=== PATIENT | female | born 2000 | race Hispanic/Latino ===

== ENCOUNTER 2020-01-02 13:27 | Emergency (ER) | payer SELFPAY ==
[2020-01-02] MEDS ORDERED: FAMOTIDINE 20 MG/2 ML VIAL IV ONE (13:37)
[2020-01-02] MEDS ORDERED: METHYLPREDNISOLONE 125 MG INJ ONE (13:37)
[2020-01-02] MEDS ORDERED: DIPHENHYDRAMINE 50 MG/ML VIAL ONE (13:37)
[2020-01-02] MEDS ORDERED: NA CHLORIDE 0.9% 1,000 ML ONE (13:37)
--- NOTE | 2020-01-02 15:35 | ER ---
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 Transition of care: patient was not received from another setting of care. Onset: The symptoms/episode began/occurred suddenly. Anaphylaxis evaluation, no signs or symptoms of anaphylaxis were noted. Onset of symptoms was January 02, 2020. Risk Assessment: Do you want to hurt yourself or someone else? Patient reports no desire to harm self or others. Initial Sepsis Screen: Does the patient meet any 2 criteria? No. Patient's initial sepsis screen is negative. Does the patient have a suspected source of infection? No. Patient's initial sepsis screen is negative. Care prior to arrival: None. 13:25 Method Of Arrival: Ambulatory iw 13:25 Acuity: ALIX 2 iw Triage Assessment: 13:45 General: Appears in no apparent distress. comfortable, Behavior is cooperative, bp appropriate for age, anxious. Pain: Denies pain. EENT: No deficits noted. Neuro: No deficits noted. Cardiovascular: No deficits noted. Respiratory: No deficits noted. GI: No signs and/or symptoms were reported involving the gastrointestinal system. : No signs and/or symptoms were reported regarding the genitourinary system. Derm: Rash noted that is itchy. Musculoskeletal: No deficits noted. 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 - Coronavirus screen:: The patient has NOT traveled to [place] in the past 14 days. Proceed with normal triage process as indicated. - Social history:: Smoking status: Patient reports the use of cigarette tobacco products, denies chronic smoking, but will smoke occasionally. - Ebola Screening: : Patient negative for fever greater than or equal to 101.5 degrees Fahrenheit, and additional compatible Ebola Virus Disease symptoms Patient denies exposure to infectious person Patient denies travel to an Ebola-affected area in the 21 days before illness onset No symptoms or risks identified at this time. Screenin:45 Abuse screen: Denies threats or abuse. Denies injuries from another. Nutritional bp screening: No deficits noted. Tuberculosis screening: No symptoms or risk factors identified. Fall Risk None identified. Assessment: 13:45 General: SEE TRIAGE NOTE. bp Vital Signs: 13:44 BP 118 / 76; Pulse 93; Resp 18 S; Pulse Ox 97% on R/A; Weight 68.04 kg; Height 5 ft. 5 iw in. (165.10 cm); Pain 0/10; 13:45 BP 108 / 68; Pulse 93; Resp 18; Pulse Ox 97% on R/A; hb 14:45 BP 115 / 84; Pulse 83; Resp 15; Pulse Ox 99% on R/A; ah 13:44 Body Mass Index 24.96 (68.04 kg, 165.10 cm) iw ED Course: 13:29 Patient arrived in ED. as 13:35 Joyce Daigle FNP-C is PHCP. kb 13:35 Sae Cedeno MD is Attending Physician. kb 13:38 Inserted saline lock: 22 gauge in right antecubital area, using aseptic technique. kj1 13:39 Triage completed. iw 13:45 Patient has correct armband on for positive identification. Bed in low position. Call bp light in reach. Side rails up X2. 13:46 Arm band placed on. iw 14:14 Geovany Santana, RN is Primary Nurse. bp 15:08 No provider procedures requiring assistance completed. IV discontinued, intact, ah bleeding controlled, No redness/swelling at site. Pressure dressing applied. Administered Medications: 13:45 Drug: Benadryl 25 mg Route: IVP; Site: right antecubital; hb 13:46 Drug: NS 0.9% 1000 ml Route: IV; Rate: 1000 ml; Site: right antecubital; hb 13:46 Drug: Pepcid 20 mg Route: IVP; Site: right antecubital; hb 13:46 Drug: SOLU-Medrol 125 mg Route: IVP; Site: right antecubital; hb Outcome: 15:00 Discharge ordered by MD. kb 15:08 Discharged to home ambulatory. 15:08 Condition: stable 15:08 Discharge instructions given to patient, Instructed on discharge instructions, Demonstrated understanding of instructions, follow-up care, medications, Prescriptions given X 2. 15:09 Patient left the ED. Signatures: Joyce Daigle, RYAN-Delta DAVIS-Josy Bridges Irene, RN RN Teena Vo RN RN Geovany Santana RN RN Mary Daigle kj1 Mayela Baker RN RN Corrections: (The following items were deleted from the chart) 13:47 13:44 68.04 kg; Height 5 ft. 5 in.; BMI: 24.9; Pain 0/10; iw iw
--- NOTE | 2020-01-02 15:37 | EDPHYS ---
Physician Documentation [facility] Name: Sera Metzger Age: 19 yrs Sex: Female : 2000 Arrival Date: 01/02/2020 Time: 13:29 Bed 19 Private MD: ED Physician Sae Cedeno HPI: 01/02 13:35 This 19 yrs old Female presents to ER via Unassigned with complaints of kb Allergic Reaction. 16:09 The patient presents with itching, rash, that is diffuse. Onset: The symptoms/episode kb began/occurred just prior to arrival. Associated signs and symptoms: Pertinent positives: hives, rash. Possible causes: pink monster. At home the patient or guardian has treated the symptoms with Benadryl. Severity of symptoms: At their worst the symptoms were moderate in the emergency department the symptoms are unchanged. The patient has not experienced similar symptoms in the past. The patient has not recently seen a physician. 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 - Coronavirus screen:: The patient has NOT traveled to [place] in the past 14 days. Proceed with normal triage process as indicated. - Social history:: Smoking status: Patient reports the use of cigarette tobacco products, denies chronic smoking, but will smoke occasionally. - Ebola Screening: : Patient negative for fever greater than or equal to 101.5 degrees Fahrenheit, and additional compatible Ebola Virus Disease symptoms Patient denies exposure to infectious person Patient denies travel to an Ebola-affected area in the 21 days before illness onset No symptoms or risks identified at this time. ROS: 16:08 Constitutional: Negative for fever, chills, and weight loss, Neck: Negative for injury, kb pain, and swelling, Cardiovascular: Negative for chest pain, palpitations, and edema, Respiratory: Negative for shortness of breath, cough, wheezing, and pleuritic chest pain, Abdomen/GI: Negative for abdominal pain, nausea, vomiting, diarrhea, and constipation, Back: Negative for injury and pain, MS/Extremity: Negative for injury and deformity, Neuro: Negative for headache, weakness, numbness, tingling, and seizure. 16:08 Skin: Positive for rash, diffusely. Exam: 16:08 Constitutional: This is a well developed, well nourished patient who is awake, alert, kb and in no acute distress. Head/Face: Normocephalic, atraumatic. Chest/axilla: Normal chest wall appearance and motion. Nontender with no deformity. No lesions are appreciated. Cardiovascular: Regular rate and rhythm with a normal S1 and S2. No gallops, murmurs, or rubs. Normal PMI, no JVD. No pulse deficits. Respiratory: Lungs have equal breath sounds bilaterally, clear to auscultation and percussion. No rales, rhonchi or wheezes noted. No increased work of breathing, no retractions or nasal flaring. Abdomen/GI: Soft, non-tender, with normal bowel sounds. No distension or tympany. No guarding or rebound. No evidence of tenderness throughout. MS/ Extremity: Pulses equal, no cyanosis. Neurovascular intact. Full, normal range of motion. Neuro: Awake and alert, GCS 15, oriented to person, place, time, and situation. Cranial nerves II-XII grossly intact. Motor strength 5/5 in all extremities. Sensory grossly intact. Cerebellar exam normal. Normal gait. 16:08 Skin: consistent with urticaria, and is diffusely located. Vital Signs: 13:44 BP 118 / 76; Pulse 93; Resp 18 S; Pulse Ox 97% on R/A; Weight 68.04 kg; Height 5 ft. 5 iw in. (165.10 cm); Pain 0/10; 13:45 BP 108 / 68; Pulse 93; Resp 18; Pulse Ox 97% on R/A; hb 14:45 BP 115 / 84; Pulse 83; Resp 15; Pulse Ox 99% on R/A; ah 13:44 Body Mass Index 24.96 (68.04 kg, 165.10 cm) iw MDM: 13:36 Patient medically screened. kb 14:58 Data reviewed: vital signs, nurses notes. Data interpreted: Pulse oximetry: on room air kb is 97 %. Interpretation: normal. Counseling: I had a detailed discussion with the patient and/or guardian regarding: the historical points, exam findings, and any diagnostic results supporting the discharge/admit diagnosis, the need for outpatient follow up, a family practitioner, to return to the emergency department if symptoms worsen or persist or if there are any questions or concerns that arise at home. 01/02 13:36 Order name: IV Start; Complete Time: 13:46 kb Administered Medications: 13:45 Drug: Benadryl 25 mg Route: IVP; Site: right antecubital; hb 13:46 Drug: NS 0.9% 1000 ml Route: IV; Rate: 1000 ml; Site: right antecubital; hb 13:46 Drug: Pepcid 20 mg Route: IVP; Site: right antecubital; hb 13:46 Drug: SOLU-Medrol 125 mg Route: IVP; Site: right antecubital; hb Disposition: 15:20 Co-signature as Attending Physician, Sae Cedeno MD I agree with the assessment and kdr plan of care. Disposition: 01/02/20 15:00 Discharged to Home. Impression: Urticaria. - Condition is Stable. - Discharge Instructions: Hives, [id number], Allergies, [id number]. - Prescriptions for Pepcid 20 mg Oral Tablet - take 1 tablet by ORAL route every 12 hours for 5 days; 10 tablet. Prednisone 20 mg Oral Tablet - take 1 tablet by ORAL route once daily for 5 days; 5 tablet. - Medication Reconciliation Form, Thank You Letter, Antibiotic Education, Prescription Opioid Use form. - Follow up: Emergency Department; When: As needed; Reason: Worsening of condition. Follow up: Private Physician; When: 2 - 3 days; Reason: Recheck today's complaints, Continuance of care, Re-evaluation by your physician. Signatures: Joyce Daigle, STAFF CERTIFIED NURSE MIDWIFE-C STAFF CERTIFIED NURSE MIDWIFE-Ckb Sae Cedeno MD MD [facility] Ritika Soliz RN RN Teena Vo, RAVINDRA RN Mayela Celis RN RN Corrections: (The following items were deleted from the chart) 15:09 15:00 01/02/2020 15:00 Discharged to Home. Impression: Urticaria. Condition is Stable. ah Forms are Medication Reconciliation Form, Thank You Letter, Antibiotic Education, Prescription Opioid Use. Follow up: Emergency Department; When: As needed; Reason: Worsening of condition. Follow up: Private Physician; When: 2 - 3 days; Reason: Recheck today's complaints, Continuance of care, Re-evaluation by your physician. kb
[2020-01-03 09:32] VITALS: BP 115/84; O2SAT 99
== END 2020-01-02 15:09 | disposition home or self-care (01) ==
LOC: ER 13:27
DX: L50.9 Urticaria, unspecified (principal); F41.9 Anxiety disorder, unspecified; F17.210 Nicotine dependence, cigarettes, uncomplicated
CPT/HCPCS: 96374; 96375; 99283; J1200; J2930; J7030

== ENCOUNTER 2020-12-17 02:15 | Emergency (ER) | payer SELFPAY ==
[2020-12-17] MEDS ORDERED: KETOROLAC 30 MG/ML INJ ONE (02:53)
[2020-12-17 03:04] LABS: Urine Blood 2+ (NEG); Urine Glucose NEGATIVE (NEG); Urine Protein 3+ (NEG); Urine Specific Gravity 1.025 (1.005-1.030)
[2020-12-17 03:07] LABS: Absolute Lymphocytes (CBC) 2.5 K/uL (0.7-4.9); Basophils % 0.4 % (0-1.3); MPV 8.3 fL (7.6-11.3)
[2020-12-17 03:19] LABS: ALT/SGPT 15 U/L (12-78); AST/SGOT 12 U/L (15-37); Albumin 3.9 g/dL (3.4-5.0); Alkaline Phosphatase 82 U/L (45-117); BUN Blood Urea Nitrogen 13 mg/dL (7-18); Bicarbonate 26 mmol/L (21-32); Bilirubin Direct 0.1 mg/dL (0-0.2); Bilirubin Total 0.5 mg/dL (0.2-1.0); Glucose Level 88 mg/dL (74-106); Lipase 162 U/L (73-393); Potassium 4.1 mmol/L (3.5-5.1); Protein, Total 7.9 g/dL (6.4-8.2); Sodium Level 139 mmol/L (136-145)
--- NOTE | 2020-12-17 03:31 | ER ---
Nurse's Notes [facility] Name: Sera Metzger Age: 20 yrs Sex: Female : 2000 Arrival Date: 12/17/2020 Time: 02:19 Bed 14 Private MD: Diagnosis: Kidney stone - recently passed;Urinary tract infection, site not specified Presentation: 12/17 02:26 Chief complaint: Patient states: reports right sided flank pain that radiates into RLQ em at midnight, reports burning and frequency, denies N/V. Coronavirus screen: Client denies travel out of the [place] in the last 14 days. Ebola Screen: Patient negative for fever greater than or equal to 101.5 degrees Fahrenheit, and additional compatible Ebola Virus Disease symptoms Patient denies exposure to infectious person. Patient denies travel to an Ebola-affected area in the 21 days before illness onset. No symptoms or risks identified at this time. Initial Sepsis Screen: Does the patient meet any 2 criteria? HR > 90 bpm. No. Patient's initial sepsis screen is negative. Does the patient have a suspected source of infection? No. Patient's initial sepsis screen is negative. Risk Assessment: Do you want to hurt yourself or someone else? Patient reports no desire to harm self or others. Onset of symptoms was December 17, 2020. 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 - Social history:: Smoking status: Patient reports the use of cigarette tobacco products, denies chronic smoking, but will smoke occasionally. - Family history:: not pertinent. - Hospitalizations: : No recent hospitalization is reported. Screenin:32 Abuse screen: Denies threats or abuse. Nutritional screening: No deficits noted. em Tuberculosis screening: No symptoms or risk factors identified. Fall Risk None identified. Assessment: 02:33 General: Appears in no apparent distress. comfortable, Behavior is calm, cooperative, em appropriate for age, Denies fever. Pain: Complains of pain in anterior aspect of right lateral abdomen Pain radiates to right lower quadrant Pain currently is 8 out of 10 on a pain scale. Neuro: Level of Consciousness is awake, alert, obeys commands, Oriented to person, place, time, situation, Appropriate for age. Cardiovascular: Capillary refill < 3 seconds Patient's skin is warm and dry. Respiratory: Airway is patent Respiratory effort is even, unlabored, Respiratory pattern is regular, symmetrical. GI: Abdomen is flat, Abd is soft and non tender X 4 quads. GI: Patient currently denies nausea, vomiting. : Reports burning with urination, urinary frequency. Derm: Skin is intact, is healthy with good turgor, Skin is. Musculoskeletal: Capillary refill < 3 seconds, Range of motion: intact in all extremities. 03:36 Reassessment: Patient appears in no apparent distress at this time. Patient is alert, rr5 oriented x 3, equal unlabored respirations, skin warm/dry/pink. discharge instruction given and explained without complaints made Patient states feeling better. Patient states symptoms have improved. Vital Signs: 02:26 BP 108 / 62; Pulse 91; Resp 18; Temp 98.7(O); Pulse Ox 100% on R/A; Weight 68.04 kg; em Height 5 ft. 7 in. (170.18 cm); Pain 8/10; 03:20 BP 94 / 61; Pulse 81; Resp 18; Pulse Ox 100% on R/A; em 02:26 Body Mass Index 23.49 (68.04 kg, 170.18 cm) em ED Course: 02:19 Patient arrived in ED. bp1 02:20 Eloy Hall MD is Attending Physician. rn 02:26 Cali Vang, RAVINDRA is Primary Nurse. em 02:30 Triage completed. em 02:31 Arm band placed on. em 02:32 Patient has correct armband on for positive identification. Bed in low position. Call em light in reach. Side rails up X2. Pulse ox on. NIBP on. 02:45 Initial lab(s) drawn, by me, sent to lab. Inserted saline lock: 20 gauge in right em antecubital area, using aseptic technique. Blood collected. 03:05 CT Stone Protocol In Process Unspecified. EDMS 03:37 No provider procedures requiring assistance completed. IV discontinued, intact, rr5 bleeding controlled, No redness/swelling at site. Pressure dressing applied. Administered Medications: 02:50 Drug: TORadol 30 mg Route: IVP; Site: right antecubital; rr5 03:38 Follow up: Response: No adverse reaction; Pain is decreased rr5 Outcome: 03:30 Discharge ordered by . rn 03:37 Discharged to home ambulatory. rr5 03:37 Condition: stable 03:37 Discharge instructions given to patient, Instructed on discharge instructions, follow up and referral plans. medication usage, Demonstrated understanding of instructions, follow-up care, medications, Prescriptions given X 1. 03:39 Patient left the ED. rr5 Signatures: Dispatcher [employer] EDCali Kaur, RN Eloy Moreno MD MD rn Roque, Raymond, RAVINDRA RN rr5 Anni Ardon
--- NOTE | 2020-12-17 03:31 | EDPHYS ---
Physician Documentation [facility] Name: Sera Metzger Age: 20 yrs Sex: Female : 2000 Arrival Date: 12/17/2020 Time: 02:19 Bed 14 Private MD: ED Physician Eloy Hall HPI: 12/17 02:33 This 20 yrs old Female presents to ER via Ambulatory with complaints of Flank rn Pain, Possible Kidney Stone. 02:33 The patient complains of pain in the right mid back. The pain radiates to the abdomen. rn Onset: The symptoms/episode began/occurred 2 hour(s) ago. Modifying factors: The symptoms are alleviated by nothing. the symptoms are aggravated by nothing. Associated signs and symptoms: Pertinent positives: dysuria, urinary frequency, Pertinent negatives: diarrhea, fever, vomiting. Severity of pain: At its worst the pain was moderate in the emergency department the pain is unchanged. The patient has not experienced similar symptoms in the past. The patient has not recently seen a physician. Reports 2 hours of right flank pain, radiates to right groin, no fever/vomiting. Reports father with kidney stones. No diarrhea. Reports increased urinary frequency and dysuria.. 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 - Social history:: Smoking status: Patient reports the use of cigarette tobacco products, denies chronic smoking, but will smoke occasionally. - Family history:: not pertinent. - Hospitalizations: : No recent hospitalization is reported. ROS: 02:33 Constitutional: Negative for fever, chills, and weight loss, Eyes: Negative for injury, rn pain, redness, and discharge, Neck: Negative for injury, pain, and swelling, Cardiovascular: Negative for chest pain, palpitations, and edema, Respiratory: Negative for shortness of breath, cough, wheezing, and pleuritic chest pain, Abdomen/GI: Negative for nausea, vomiting, diarrhea, and constipation, Back: Negative for injury and pain, : + dysuria and increased frequency MS/Extremity: Negative for injury and deformity, Skin: Negative for injury, rash, and discoloration, Neuro: Negative for headache, weakness, numbness, tingling, and seizure. Exam: 02:33 Constitutional: This is a well developed, well nourished patient who is awake, alert, rn and in no acute distress. Head/Face: Normocephalic, atraumatic. Cardiovascular: Regular rate and rhythm. No pulse deficits. Respiratory: No increased work of breathing, no retractions or nasal flaring. Abdomen/GI: Soft, non-tender, neg walter Skin: Warm, dry MS/ Extremity: Pulses equal, no cyanosis. Neuro: Awake and alert, GCS 15 Vital Signs: 02:26 BP 108 / 62; Pulse 91; Resp 18; Temp 98.7(O); Pulse Ox 100% on R/A; Weight 68.04 kg; em Height 5 ft. 7 in. (170.18 cm); Pain 8/10; 03:20 BP 94 / 61; Pulse 81; Resp 18; Pulse Ox 100% on R/A; em 02:26 Body Mass Index 23.49 (68.04 kg, 170.18 cm) em MDM: 02:20 Patient medically screened. rn 03:29 Differential diagnosis: nephrolithiasis, pyelonephritis, UTI, appendicitis. Data rn reviewed: vital signs, nurses notes, lab test result(s), radiologic studies, CT scan, and as a result, I will discharge patient. Counseling: I had a detailed discussion with the patient and/or guardian regarding: the historical points, exam findings, and any diagnostic results supporting the discharge/admit diagnosis, lab results, radiology results, the need for outpatient follow up, to return to the emergency department if symptoms worsen or persist or if there are any questions or concerns that arise at home. Response to treatment: the patient's symptoms have markedly improved after treatment, and as a result, I will discharge patient. Special discussion: I discussed with the patient/guardian in detail that at this point there is no indication for admission to the hospital. It is understood, however, that if the symptoms persist or worsen the patient needs to return immediately for re-evaluation. ED course: Pt markedly improved, ct shows signs of recently passed right kidney stone, + UTI, will dc home with abx and return precautions. . 12/17 02:33 Order name: Basic Metabolic Panel; Complete Time: 03:31 rn 12/17 02:33 Order name: CBC with Diff; Complete Time: 03:15 rn 12/17 02:33 Order name: Hepatic Function; Complete Time: 03:31 rn 12/17 02:33 Order name: Lipase; Complete Time: 03:31 rn 12/17 02:47 Order name: Urine Dipstick--Ancillary (enter results) tt3 12/17 02:47 Order name: Urine --Ancillary (enter results) tt3 12/17 02:33 Order name: IV Saline Lock; Complete Time: 02:45 rn 12/17 02:33 Order name: Labs collected and sent; Complete Time: 02:45 rn 12/17 02:33 Order name: CT Stone Protocol rn 12/17 02:33 Order name: Urine Test (obtain specimen); Complete Time: 02:45 rn 12/17 02:33 Order name: Urine Dipstick-Ancillary (obtain specimen); Complete Time: 02:45 rn 12/17 02:47 Order name: Urine Dipstick-Ancillary; Complete Time: 03:15 EDMS 12/17 02:47 Order name: Urine --Ancillary; Complete Time: 03:15 EDMS Administered Medications: 02:50 Drug: TORadol 30 mg Route: IVP; Site: right antecubital; rr5 03:38 Follow up: Response: No adverse reaction; Pain is decreased rr5 Disposition: 12/17/20 03:30 Discharged to Home. Impression: Kidney stone - recently passed, Urinary tract infection, site not specified. - Condition is Stable. - Discharge Instructions: Dysuria, Kidney Stones, Urinary Tract Infection, Adult, Dietary Guidelines to Help Prevent Kidney Stones. - Prescriptions for Cipro 500 mg Oral Tablet - take 1 tablet by ORAL route every 12 hours for 7 days; 14 tablet. - Medication Reconciliation Form, Thank You Letter, Antibiotic Education, Prescription Opioid Use form. - Follow up: Private Physician; When: As needed; Reason: Recheck today's complaints, Re-evaluation by your physician. - Problem is new. - Symptoms have improved. Signatures: Dispatcher [employer] Cali Myles RN RN em Nieto, Roman, MD MD rn Roque, Raymond, RN RN rr5 Corrections: (The following items were deleted from the chart) 02:35 02:33 Constitutional: Negative for fever, chills, and weight loss, Eyes: Negative for rn injury, pain, redness, and discharge, Neck: Negative for injury, pain, and swelling, Cardiovascular: Negative for chest pain, palpitations, and edema, Respiratory: Negative for shortness of breath, cough, wheezing, and pleuritic chest pain, Abdomen/GI: Negative for nausea, vomiting, diarrhea, and constipation, Back: Negative for injury and pain, : Negative for injury, bleeding, discharge, and swelling, MS/Extremity: Negative for injury and deformity, Skin: Negative for injury, rash, and discoloration, Neuro: Negative for headache, weakness, numbness, tingling, and seizure, rn 03:39 03:30 12/17/2020 03:30 Discharged to Home. Impression: Kidney stone - recently passed; rr5 Urinary tract infection, site not specified. Condition is Stable. Forms are Medication Reconciliation Form, Thank You Letter, Antibiotic Education, Prescription Opioid Use. Follow up: Private Physician; When: As needed; Reason: Recheck today's complaints, Re-evaluation by your physician. Problem is new. Symptoms have improved. rn
[2020-12-17 03:44] VITALS: TEMP 98.7; O2SAT 100
[2020-12-17 03:45] VITALS: BP 94/61
--- NOTE | 2020-12-17 11:40 | RAD REPORT ---
EXAM DESCRIPTION: CT - Stone Protocol - 12/17/2020 6:20 am CLINICAL HISTORY: The patient is 20 years old and is Female; right flank pain, dysuria TECHNIQUE: Axial computed tomography images of the abdomen and pelvis without intravenous contrast. Sagittal and coronal reformatted images were created and reviewed. This CT exam was performed usi ng one or more of the following dose reduction techniques: automated exposure control, adjustment o f the mA and/or kV according to patient size, and/or use of iterative reconstruction technique. COMPARISON: No relevant prior studies available. FINDINGS: LUNG BASES: Unremarkable. No mass. No consolidation. ABDOMEN: LIVER: Homogeneous without focal mass. GALLBLADDER AND BILE DUCTS: No calcified stones. No ductal dilation. PANCREAS: Unremarkable. No ductal dilation. SPLEEN: Unremarkable. ADRENALS: Unremarkable. No mass. KIDNEYS AND URETERS: Mild right hydronephrosis and proximal hydroureter is present. Obstructing calculus is not seen. The left kidney is normal. STOMACH AND BOWEL: The stomach is well distended with food contents and fluid. The small bowel i s normal in caliber. A moderate amount stool is present throughout colon. There is no bowel obstructi on. PELVIS: APPENDIX: The appendix is normal in caliber without surrounding inflammation. BLADDER: Diffuse bladder wall thickening is present. Mild surrounding inflammation is noted. N o stones. REPRODUCTIVE: Probable 1.8 cm left ovarian cyst is present. No follow-up imaging is recommended. The uterus and right ovary are normal. ABDOMEN and PELVIS: INTRAPERITONEAL SPACE: Free fluid is present in the pelvis which is likely physiologic. No clarence e air. BONES/JOINTS: No acute fracture. SOFT TISSUES: The soft tissues are normal. VASCULATURE: A few calcified phleboliths are present within the pelvis. No abdominal aortic an eurysm. LYMPH NODES: Unremarkable. No enlarged lymph nodes. IMPRESSION: 1. Mild right hydronephrosis and proximal hydroureter. An obstructing calculus is not seen. Findings may be secondary to a recently passed stone. 2. Diffuse bladder wall thickening with surrounding inflammation suggestive of cystitis. Electronically signed by: Tri Eng MD 12/17/2020 3:15 AM RECORDS SUPERVISOR Due to temporary technical issues with the PACS/Fluency reporting system, reports are being signed by the in house radiologist without review as a courtesy to ensure prompt reporting. The interpreting r adiologist is fully responsible for the content of the report.
== END 2020-12-17 03:39 | disposition home or self-care (01) ==
LOC: ER 02:15
DX: N13.2 Hydronephrosis with renal and ureteral calculous obstruction (principal); N39.0 Urinary tract infection, site not specified; F17.210 Nicotine dependence, cigarettes, uncomplicated; F41.9 Anxiety disorder, unspecified
CPT/HCPCS: 36415; 74176; 76377; 80048; 80076; 81003; 81025; 83690; 85025; 96374; 99284

== ENCOUNTER 2021-01-26 10:38 | Emergency (ER) | payer SELFPAY ==
--- NOTE | 2021-01-26 11:09 | EDPHYS ---
Physician Documentation [facility] Name: Sera Metzger Age: 20 yrs Sex: Female : 2000 Arrival Date: 01/26/2021 Time: 10:42 Bed 20 Private MD: ED Physician Eloy Hall HPI: 01/26 11:01 This 20 yrs old Female presents to ER via Ambulatory with complaints of Lip pm1 sore. 11:01 The patient presents with cold sores. The problem is located in the lower lip. Onset: pm1 The symptoms/episode began/occurred 4 day(s) ago. Duration: The symptoms are continuous. Modifying factors: The symptoms are alleviated by over the counter medications, Abbreva. Associated signs and symptoms: Pertinent negatives: fever, inability to eat. Severity of symptoms: in the emergency department the symptoms have improved, markedly, with abbreva. The patient has not experienced similar symptoms in the past. The patient has not recently seen a physician. 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 - Social history:: Smoking status: Patient reports the use of cigarette tobacco products, denies chronic smoking, but will smoke occasionally. ROS: 11:01 Constitutional: Negative for fever, chills, and weight loss. pm1 11:01 Cardiovascular: Negative for chest pain, palpitations, and edema, Respiratory: Negative for shortness of breath, cough, wheezing, and pleuritic chest pain, MS/Extremity: Negative for injury and deformity, Skin: Negative for injury, rash, and discoloration. 11:01 ENT: Positive for lower lip sores, Negative for ear pain, sore throat. Exam: 11:01 Constitutional: This is a well developed, well nourished patient who is awake, alert, pm1 and in no acute distress. Head/Face: Normocephalic, atraumatic. 11:01 Skin: Warm, dry with normal turgor. Normal color with no rashes, no lesions, and no evidence of cellulitis. 11:01 ENT: Mouth: Lips: small vesicular lesions with crusting to lower lip, Posterior pharynx: no acute changes, Voice: is normal. 11:01 Cardiovascular: Exam negative for acute changes, Rate: normal, Rhythm: regular, Pulses: no pulse deficits are appreciated. 11:01 Respiratory: Exam negative for acute changes, respiratory distress, shortness of breath. 11:01 Neuro: Exam negative for acute changes, Orientation: is normal, Mentation: is normal, Motor: moves all fours. Vital Signs: 10:51 BP 102 / 76; Pulse 90; Resp 16; Temp 98.7; Pulse Ox 100% ; Weight 62.14 kg; Height 5 ll1 ft. 7 in. (170.18 cm); Pain 8/10; 11:09 BP 101 / 74; Pulse 92; Resp 18; Pulse Ox 99% on R/A; Pain 2/10; bw 10:51 Body Mass Index 21.46 (62.14 kg, 170.18 cm) ll1 MDM: 10:55 Patient medically screened. pm1 11:01 Data reviewed: vital signs. Data interpreted: monitoring tech: Pulse oximetry: on room pm1 air is 100 %. Interpretation: normal. Counseling: I had a detailed discussion with the patient and/or guardian regarding: the historical points, exam findings, and any diagnostic results supporting the discharge/admit diagnosis, the need for outpatient follow up, a family practitioner, to return to the emergency department if symptoms worsen or persist or if there are any questions or concerns that arise at home. 11:01 ED course: Patient with improvement to cold sores with Abreva. Patient refused any pain pm1 medications for the sore since they Abreva improved her symptoms and they don't hurt now. Recommended that she continue the medication until it resolves. Administered Medications: No medications were administered Disposition: 13:18 Co-signature as Attending Physician, Eloy Hall MD. rn Disposition: 01/26/21 11:08 Discharged to Home. Impression: Herpesviral vesicular dermatitis. - Condition is Stable. - Discharge Instructions: Cold Sore. - Medication Reconciliation Form, Thank You Letter, Antibiotic Education, Prescription Opioid Use form. - Follow up: Emergency Department; When: As needed; Reason: Worsening of condition. Follow up: Private Physician; When: 2 - 3 days; Reason: Recheck today's complaints, Continuance of care, Re-evaluation by your physician. - Problem is new. - Symptoms have improved. Signatures: Eloy Hall MD MD rn Marinas, Patrick, MEDICAL ACCOUNTS RECEIVABLE SPECIALIST MEDICAL ACCOUNTS RECEIVABLE SPECIALIST pm1 Stephen Leary RN RN ll1 Mone Jacome RN RN bw Corrections: (The following items were deleted from the chart) 11:15 11:08 01/26/2021 11:08 Discharged to Home. Impression: Herpesviral vesicular bw dermatitis. Condition is Stable. Forms are Medication Reconciliation Form, Thank You Letter, Antibiotic Education, Prescription Opioid Use. Follow up: Emergency Department; When: As needed; Reason: Worsening of condition. Follow up: Private Physician; When: 2 - 3 days; Reason: Recheck today's complaints, Continuance of care, Re-evaluation by your physician. Problem is new. Symptoms have improved. pm1
--- NOTE | 2021-01-26 11:09 | ER ---
Nurse's Notes [facility] Name: Sera Metzger Age: 20 yrs Sex: Female : 2000 Arrival Date: 01/26/2021 Time: 10:42 Bed 20 Private MD: Diagnosis: Herpesviral vesicular dermatitis Presentation: 01/26 10:51 Chief complaint: Patient states: Cold sores to bottom lip for 4 days. No known fever. ll1 Coronavirus screen: Client denies travel out of the [place] in the last 14 days. At this time, the client does not indicate any symptoms associated with coronavirus-19. Ebola Screen: Patient denies travel to an Ebola-affected area in the 21 days before illness onset. Initial Sepsis Screen: Does the patient meet any 2 criteria? No. Patient's initial sepsis screen is negative. Does the patient have a suspected source of infection? Yes: Skin breakdown/wound. Risk Assessment: Do you want to hurt yourself or someone else? Patient reports no desire to harm self or others. Onset of symptoms was January 23, 2021. 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 - Social history:: Smoking status: Patient reports the use of cigarette tobacco products, denies chronic smoking, but will smoke occasionally. Screenin:09 Abuse screen: Denies threats or abuse. Nutritional screening: No deficits noted. bw Tuberculosis screening: No symptoms or risk factors identified. Fall Risk None identified. Assessment: 11:09 General: Appears in no apparent distress. Behavior is cooperative, appropriate for age. bw Pain: Complains of pain in mouth. Neuro: No deficits noted. Cardiovascular: No deficits noted. Respiratory: No deficits noted. GI: No deficits noted. Derm: cold sores noted to lips. Vital Signs: 10:51 BP 102 / 76; Pulse 90; Resp 16; Temp 98.7; Pulse Ox 100% ; Weight 62.14 kg; Height 5 ll1 ft. 7 in. (170.18 cm); Pain 8/10; 11:09 BP 101 / 74; Pulse 92; Resp 18; Pulse Ox 99% on R/A; Pain 2/10; bw 10:51 Body Mass Index 21.46 (62.14 kg, 170.18 cm) 1 ED Course: 10:42 Patient arrived in ED. mr 10:52 Triage completed. ll1 10:53 Arm band placed on Patient placed in an exam room, on a stretcher. ll1 10:54 Balaji Granados NP is PHCP. pm1 10:55 Eloy Hall MD is Attending Physician. pm1 11:09 Mone Jacome, RAVINDRA is Primary Nurse. bw 11:09 Patient has correct armband on for positive identification. Bed in low position. Call bw light in reach. Side rails up X 1. Pulse ox on. NIBP on. Warm blanket given. Patient is placed in psych hold. 11:09 No provider procedures requiring assistance completed. Patient did not have IV access bw during this emergency room visit. Administered Medications: No medications were administered Outcome: 11:08 Discharge ordered by . pm1 11:09 Discharged to home ambulatory. bw 11:09 Condition: stable 11:09 Discharge instructions given to patient, Instructed on discharge instructions. 11:15 Patient left the ED. Signatures: Adeline Omalley TatianazeinaBalaji NP VENEER MATCHER pm1 Stephen Leary, RAVINDRA RN [facility] Mone Jacome RN RN
[2021-01-26 11:43] VITALS: BP 101/74; O2SAT 99
[2021-01-26 11:44] VITALS: TEMP 98.7
== END 2021-01-26 11:15 | disposition home or self-care (01) ==
LOC: ER 10:38
DX: B00.1 Herpesviral vesicular dermatitis (principal); F17.210 Nicotine dependence, cigarettes, uncomplicated; Z91.048 Other nonmedicinal substance allergy status
CPT/HCPCS: 99283